=== PATIENT | male | born 1995 | race Caucasian/White ===

== ENCOUNTER 2017-04-30 11:08 | Emergency (ER) | payer SELFPAY ==
[~2017-04-30] VITALS: Ht 180.3 cm; Wt 85.0 kg
[~2017-04-30 11:08] MED LIST: MMW SS; PENI500T PO
[2017-04-30 11:10] VITALS: BP 136/76; PULSE 53; RESP 16; TEMP 98.7; O2SAT 99
[2017-04-30] MEDS ORDERED: PENI500T PO (11:21)
[2017-04-30] MEDS ORDERED: IBUP800T23 PO (11:21)
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
== END 2017-04-30 11:25 | disposition home or self-care (01) ==
LOC: PHEFT 11:08
DX: K04.7 Periapical abscess without sinus (principal)
CPT/HCPCS: 99283

== ENCOUNTER 2017-05-01 03:19 | Emergency (ER) | payer SELFPAY ==
[~2017-05-01] VITALS: Ht 180.3 cm; Wt 85.1 kg
[~2017-05-01 03:19] MED LIST changes: +IBUP800T23 PO
[2017-05-01 03:23] VITALS: BP 142/83; PULSE 47; RESP 18; TEMP 97.8; O2SAT 100
--- NOTE | 2017-05-01 03:42 | PD ---
HPI Chief Complaint: Oral / Dental Pain or Problem Time Seen by Provider: 03:40 Travel History International Travel<30 days: No Contact w/Intl Traveler<30days: No Traveled to known affect area: No History of Present Illness HPI 21-year-old male presents to the emergency department by private transportation for complaint of dental pain 2 days. Patient was seen earlier on in the emergency department diagnosed with dental abscess and prescribed ibuprofen and Penicillin VK. Patient has taken 3 doses of antibiotic and 2 doses of ibuprofen. Patient states symptoms have not improved. Patient is scheduled to follow up with dentist and has not done so as of this time due to scheduling constraints. Patient denies other concerns or complaints. No fever no chills no nausea no vomiting; no report of diabetes. PFSH Past Medical History Narrative Medical Negative past medical history; tendon injury repair finger; no tobacco use or alcohol use; nursing notes. Hx Anticoagulant Therapy: No Cardiovascular Problems: No Chemotherapy: No Cerebrovascular Accident: No Diabetes: No Respiratory: No Immunizations Current: Yes Past Surgical History Hysterectomy: No Other Surgery: Yes (Tendon repair left 4th digit ) Social History Alcohol Use: No Tobacco Use: No Substance Use: No Allergies-Medications (Allergen,Severity, Reaction): Coded Allergies: No Known Allergies (Verified , 05/01/17) Reported Meds & Prescriptions Reported Meds & Active Scripts Active Ibuprofen 800 Mg Tab 800 Mg PO Q8H PRN Penicillin V Potassium 500 Mg Tab 500 Mg PO Q6H 7 Days Review of Systems Except as stated in HPI: all other systems reviewed are Neg Physical Exam Narrative GENERAL: Well-developed well-nourished male in no acute distress no respiratory distress SKIN: Warm and dry. HEAD: Normocephalic. EYES: No scleral icterus. No injection or drainage. ENT: Mucous membranes moist extensive gingival erythema and mild edema with gingivitis and inflammation noted around a #11 to use without fluctuance or drainage. No trismus. Data Data Last Documented VS Vital Signs Date Time Temp Pulse Resp B/P Pulse Ox O2 Delivery O2 Flow Rate FiO2 05/01/17 03:23 97.8 47 18 142/83 100 MDM Medical Decision Making Medical Screen Exam Complete: Yes Emergency Medical Condition: Yes Medical Record Reviewed: Yes Differential Diagnosis Dentalgia, dental abscess, apical abscess, dental caries, dental fracture Narrative Course Patient is taking oral antibiotics and nonsteroidal anti-inflammatory medication area locally anesthetized with Hurricaine spray with some symptomatic relief. Patient is otherwise stable for outpatient management encouraged to follow closely with dentist and to complete course of antibiotic as prescribed. Diagnosis Primary Impression: Dentalgia Referrals: Dentist 1 day Departure Forms: Tests/Procedures, Work Release Special Instructions: no work x 1 day Additional Instructions: Follow soft diet avoiding extreme temperatures of food and beverages Complete course of antibiotic as prescribed Continue ibuprofen/Motrin 800 mg as often as every 8 hours May use topical Orajel for symptom relief per package directions Take acetaminophen as needed for minor pain or for fever 100.4F or greater Follow-up with dentist Return to the emergency department as needed Med/Other Pt SpecificInfo: No Change to Meds Disposition: 01 DISCHARGE HOME Condition: Stable yMra Loomis MD May 01, 2017 03:42
== END 2017-05-01 03:45 | disposition home or self-care (01) ==
LOC: PHED 03:19
DX: K08.89 Other specified disorders of teeth and supporting structures (principal)
CPT/HCPCS: 99282